=== PATIENT | male | born 1935 | race Caucasian/White ===

== ENCOUNTER 2016-11-19 08:35 | Inpatient (IN) | payer MEDICARE ==
[~2016-11-19] VITALS: Ht 177.8 cm; Wt 74.8 kg
[2016-11-19] VITALS (12 sets, daily range): BP systolic 154–177; BP diastolic 68–84; PULSE 73–90; RESP 17–22; TEMP 94.5–98.2; O2SAT 97–100
[~2016-11-19 08:35] MED LIST: CYAN100017 PO; DONE10TA7 PO; LATA0.002 EACH EYE; LISI-519 PO; LOVA40TA PO; METF1000 PO; NAME10TA PO; NOVOLOGMXP SQ
--- NOTE | 2016-11-19 08:52 | PD ---
HPI Chief Complaint: Diabetic Time Seen by Provider: 08:52 Travel History International Travel<30 days: No Contact w/Intl Traveler<30days: No Traveled to known affect area: No History of Present Illness HPI 81-year-old male was brought in from his home after being found unconscious. Patient has history of dementia. He is not a good historian. As per EMS his blood sugar was 24. Patient is diabetic. He was given 250 ML's of 10% dextrose. Repeat blood sugar by EMS was 135. By the time patient arrived here he continued to be confused and little bit stuporous. His repeat blood sugar was 84. I went to see him in his vital signs were stable. He woke up upon calling his name and followed my instructions of sitting on. He was confused and didn't know where he was and what was he doing in the emergency room. Patient is not a reliable historian at this point. However he doesn't appear to be in any significant distress. I do not know the condition of his underlying dementia. There is no family member or friends in the room to help with the history. [facility] Past Medical History Narrative Medical List of his past medical, surgical, social and family history is reviewed from the nursing note. Medical History: Unable to Obtain Arthritis: Yes Blood Disorders: No Heart Rhythm Problems: No Cancer: No Cardiovascular Problems: Yes High Cholesterol: No Chest Pain: No Congestive Heart Failure: No Cerebrovascular Accident: No Dementia: Yes Diabetes: Yes Patient Takes Glucophage: Yes Diminished Hearing: Yes ([place]) Endocrine: Yes Glaucoma: Yes Genitourinary: No Hypertension: Yes Medical other: Yes (OSTEOARTHRITIS, ELEVATED CHOLESTEROL) Musculoskeletal: Yes (orteoarthritis) Neurologic: Yes (DEMENTIA) Psychiatric: No Reproductive: No Respiratory: No Myocardial Infarction: No Thyroid Disease: No Tetanus Vaccination: Unknown Past Surgical History Surgical History: Unable to Obtain Abdominal Surgery: No Cardiac Surgery: No Eye Surgery: Yes (PHACO WITH IOL BILATERAL) Neurologic Surgery: No Oral Surgery: Yes Tonsillectomy: Yes Other Surgery: Yes Social History Alcohol Use: No Tobacco Use: No (QUIT) Substance Use: No Allergies-Medications (Allergen,Severity, Reaction): Coded Allergies: No Known Allergies (Verified , 11/19/16) Comments No known drug allergies. Reported Meds & Prescriptions Reported Meds & Active Scripts Active Lisinopril 5 Mg Tab 5 Mg PO DAILY Reported Tresiba Flextouch Pen Inj (Insulin Degludec Inj) 300 unit/3 ML Pen 30 Units SQ HS Tradjenta (Linagliptin) 5 Mg Tab 5 Mg PO DAILY Donepezil 10 Mg Tab 10 Mg PO DAILY Lovastatin 40 Mg Tab 40 Mg PO DAILY Metformin (Metformin HCl) 1,000 Mg Tab 1,000 Mg PO BID With meals Namenda (Memantine) 10 Mg Tab 10 Mg PO BID Latanoprost Opth Drops (Latanoprost) 0.005% Drops 1 Drop EACH EYE HS Refrigerate until opened. Narrative Medication List of his home medications reviewed from the nursing note. Review of Systems Except as stated in HPI: all other systems reviewed are Neg Physical Exam Narrative GENERAL: Awake, alert, elderly, confused, dementia, no obvious distress SKIN: Focused skin assessment warm/dry. HEAD: Atraumatic. Normocephalic. EYES: Pupils equal and round. No scleral icterus. No injection or drainage. ENT: No nasal bleeding or discharge. Dry mucous membrane NECK: Trachea midline. No JVD. CARDIOVASCULAR: Regular rate and rhythm. No murmur appreciated. RESPIRATORY: No accessory muscle use. Clear to auscultation. Breath sounds equal bilaterally. GASTROINTESTINAL: Abdomen soft, non-tender, nondistended. Hepatic and splenic margins not palpable. MUSCULOSKELETAL: No obvious deformities. No clubbing. No cyanosis. No edema. NEUROLOGICAL: Awake and alert. No obvious cranial nerve deficits. Motor grossly within normal limits. Normal speech. PSYCHIATRIC: Appropriate mood and affect; insight and judgment normal. Data Data Last Documented VS Vital Signs Date Time Temp Pulse Resp B/P Pulse Ox O2 Delivery O2 Flow Rate FiO2 11/19/16 12:00 97.2 11/19/16 12:00 76 17 154/74 97 Room Air Orders Complete Blood Count With Diff (11/19/16 09:06) Comprehensive Metabolic Panel (11/19/16 09:06) Urinalysis - C+S If Indicated (11/19/16 09:06) Iv Access Insert/Monitor (11/19/16 09:06) Ecg Monitoring (11/19/16 09:06) Oximetry (11/19/16 09:06) Sodium Chloride 0.9% Flush (Ns Flush) (11/19/16 09:15) Electrocardiogram (11/19/16 09:06) Blood Glucose (11/19/16 09:06) Ct Brain W/O Iv Contrast(Rout) (11/19/16 ) Blood Glucose (11/19/16 09:43) Chest, Single Ap (11/19/16 ) Potassium Chloride Eff (K-Lyte Cl Eff) (11/19/16 11:45) Dext 5%-Nacl 0.9% 500 Ml Inj (D5w-Ns 500 (11/19/16 12:45) Admit To Inpatient (11/19/16 ) Code Status (11/19/16 13:03) Vital Signs (Adult) Q4H (11/19/16 13:03) Activity Oob With Assistance (11/19/16 13:03) Candle Molder Machine / Telemetry .CONTINUOUS (11/19/16 13:03) Diet 1800 Ada Cons Carb (11/19/16 Lunch) Sodium Chloride 0.9% Flush (Ns Flush) (11/19/16 13:15) Sodium Chloride 0.9% Flush (Ns Flush) (11/19/16 21:00) Acetaminophen (Tylenol) (11/19/16 13:15) Ondansetron Inj (Zofran Inj) (11/19/16 13:15) Basic Metabolic Panel (Bmp) (11/20/16 06:00) Complete Blood Count With Diff (11/20/16 06:00) Electrocardiogram (11/19/16 13:03) Pt Request For Service (11/19/16 13:03) Scd Bilateral/Knee High JEREMIE.BID (11/19/16 13:03) Naloxone Inj (Narcan Inj) (11/19/16 13:15) Magnesium Hydroxide Liq (Milk Of Magnesi (11/19/16 13:15) Inpatient Certification (11/19/16 ) D5-Ns + Kcl 20 Meq Inj (D5-Ns + Kcl 20 M (11/19/16 13:15) Bedside Glucose . DIRECTED (11/19/16 13:09) Donepezil (Aricept) (11/20/16 09:00) Latanoprost 0.005% Opth Soln (Xalatan 0. (11/19/16 21:00) Pravastatin (Pravachol) (11/19/16 13:15) Memantine (Namenda) (11/19/16 21:00) Case Management Consult (11/19/16 ) Admit Order (Ed Use Only) (11/19/16 13:16) Labs Laboratory Tests Test 11/19/16 09:15 White Blood Count 12.3 TH/MM3 Red Blood Count 4.60 MIL/MM3 Hemoglobin 14.4 GM/DL Hematocrit 42.5 % Mean Corpuscular Volume 92.4 FL Mean Corpuscular Hemoglobin 31.2 PG Mean Corpuscular Hemoglobin 33.8 % Concent Red Cell Distribution Width 12.9 % Platelet Count 216 TH/MM3 Mean Platelet Volume 10.2 FL Neutrophils (%) (Auto) 84.2 % Lymphocytes (%) (Auto) 7.7 % Monocytes (%) (Auto) 7.7 % Eosinophils (%) (Auto) 0.1 % Basophils (%) (Auto) 0.3 % Neutrophils # (Auto) 10.3 TH/MM3 Lymphocytes # (Auto) 1.0 TH/MM3 Monocytes # (Auto) 0.9 TH/MM3 Eosinophils # (Auto) 0.0 TH/MM3 Basophils # (Auto) 0.0 TH/MM3 CBC Comment DIFF FINAL Differential Comment Urine Color LIGHT-YELLOW Urine Turbidity CLEAR Urine pH 7.0 Urine Specific [place] 1.010 Urine Protein 30 mg/dL Urine Glucose (UA) 150 mg/dL Urine Ketones NEG mg/dL Urine Occult Blood SMALL Urine Nitrite NEG Urine Bilirubin NEG Urine Urobilinogen LESS THAN 2.0 MG/DL Urine Leukocyte Esterase NEG Urine RBC 1 /hpf Urine WBC LESS THAN 1 /hpf Urine Mucus FEW /lpf Microscopic Urinalysis Comment CULT NOT INDICATED Sodium Level 139 MEQ/L Potassium Level 3.2 MEQ/L Chloride Level 102 MEQ/L Carbon Dioxide Level 22.7 MEQ/L Anion Gap 14 MEQ/L Blood Urea Nitrogen 15 MG/DL Creatinine 1.06 MG/DL Estimat Glomerular Filtration 67 ML/MIN Rate Random Glucose 85 MG/DL Calcium Level 8.7 MG/DL Total Bilirubin 0.4 MG/DL Aspartate Amino Transf 20 U/L (AST/SGOT) Alanine Aminotransferase 17 U/L (ALT/SGPT) Alkaline Phosphatase 70 U/L Total Protein 6.9 GM/DL Albumin 3.7 GM/DL MDM Medical Decision Making Medical Screen Exam Complete: Yes Emergency Medical Condition: Yes Medical Record Reviewed: Yes Interpretation(s) Twelve-lead EKG was reviewed by me. Normal sinus rhythm, normal axis, LVH, nonspecific ST-T wave changes. Heart rate of 74 bpm. Differential Diagnosis Hypoglycemia, sepsis, UTI, electrolyte abnormality Narrative Course 9:43 AM I gave patient a carton of fat free milk to drink as well as about 100 ML's of orange Gatorade. He drank the entire amount. Repeat blood sugar was 100. I asked the nurse to do a rectal temperature and it was 94.5. I've asked them to put a bear hugger. Awaiting for blood test result, UA and CT scan of his head. A repeat blood sugar 2 will be done every hourly. 11:14 AM the repeat blood sugar was 105 days. Patient has another blood sugar pending and 15 minutes. The temperature was 96.7. Patient continues to be under bear hugger. 12:45 PM repeat temperature was 97.5. However the blood sugar has dropped down to 65. Patient has been given a food tray but given the sugar of started him on D5 normal saline drip. Patient will need to be admitted at this point since he cannot sustain the blood sugar. Awaiting for the hospitalist to call back. Patient lives at home with a significant other. I'm really concerned about his caretaking. I've asked the nurse to call DCF so that they will visit can be done to look at the environmental and living circumstances Procedures EKG Prior to Arrival: No Diagnosis Primary Impression: Hypoglycemia Additional Impressions: Hypothermia Qualified Code: T68.XXXA - Hypothermia, initial encounter Dementia Qualified Code: F03.90 - Dementia without behavioral disturbance, unspecified dementia type Altered mental status Qualified Code: R40.1 - Stupor Admitting Information Admitting Physician Requests: Admit Scripts Lisinopril 5 Mg Tab5 Mg PO DAILY #60 TAB Ref 0 Prov:Jayden Lopes DO 11/19/16 Broderick Harrison MD Nov 19, 2016 08:52
[2016-11-19] MEDS ORDERED: SODIUM CHLORIDE 0.9% FLUSH 10 ML FLUSH IV FLUSH PRN ×2 (09:15→13:15)
[2016-11-19 09:40] LABS: AUTOMATED NEUTROPHIL # 10.3 TH/MM3 (1.8-7.7); BASOPHIL % 0.3 % (0.0-2.0); EOSINOPHIL % 0.1 % (0.0-4.0); HEMATOCRIT 42.5 % (39.0-51.0); HEMO FLAGS DIFF FINAL; LYMPH % 7.7 % (9.0-44.0); MEAN CELL VOLUME 92.4 FL (80.0-100.0); MEAN CORPUSCULAR HEMOGLOBIN 31.2 PG (27.0-34.0); MEAN CORPUSCULAR HGB CONC 33.8 % (32.0-36.0); MONO % 7.7 % (0.0-8.0); NEUT % 84.2 % (16.0-70.0); PLATELET COUNT 216 TH/MM3 (150-450); RED CELL DISTRIBUTION WIDTH 12.9 % (11.6-17.2); WHITE BLOOD COUNT 12.3 TH/MM3 (4.0-11.0)
[2016-11-19 09:48] LABS: BLOOD, URINE SMALL (NEG); COMMENT (UR) CULT NOT INDICATED; CULTURE IF INDICATED CULT NOT INDICATED; GLUCOSE,URINE 150 mg/dL (NEG); KETONE, URINE NEG (NEG); MUCUS URINE FEW /lpf (OCC); NITRITE,URINE NEG (NEG); URINE COLOR LIGHT-YELLOW (YELLW/STRAW)
[2016-11-19 09:59] LABS: ANION GAP 14 MEQ/L (5-15); AST (GOT) 20 U/L (15-37); BICARBONATE 22.7 MEQ/L (21.0-32.0); BLOOD UREA NITROGEN 15 MG/DL (7-18); CHLORIDE 102 MEQ/L (98-107); GLOMERULAR FILTRATION RATE 67 ML/MIN (>89); POTASSIUM 3.2 MEQ/L (3.5-5.1); SODIUM (NA) 139 MEQ/L (136-145)
[2016-11-19 10:01] LABS: ALT (GPT) 17 U/L (12-78)
[2016-11-19 10:03] LABS: ALKALINE PHOSPHATASE 70 U/L (45-117); TOTAL BILIRUBIN ADULT 0.4 MG/DL (0.2-1.0)
--- NOTE | 2016-11-19 10:11 | RADRPT ---
EXAM DATE/TIME: 11/19/2016 09:45 [facility] COMPARISON: CT BRAIN W/O CONTRAST, May 13, 2016, 11:08. INDICATIONS : Altered mental status today. RADIATION DOSE: 37.95 CTDIvol (mGy) MEDICAL HISTORY : Hypertension. Cardiovascular disease SURGICAL HISTORY : Tonsillectomy. ENCOUNTER: Initial ACUITY: 1 day PAIN SCALE: 0/10 LOCATION: Bilateral head TECHNIQUE: Multiple contiguous axial images were obtained of the head. Using automated exposure control and adj ustment of the mA and/or kV according to patient size, radiation dose was kept as low as reasonably a chievable to obtain optimal diagnostic quality images. FINDINGS: CEREBRUM: The ventricles are normal for age. No evidence of midline shift, mass lesion, hemorrhage or acute in farction. No extra-axial fluid collections are seen. POSTERIOR FOSSA: The cerebellum and brainstem are intact. The 4th ventricle is midline. The cerebellopontine angle i s unremarkable. EXTRACRANIAL: The visualized portion of the orbits is intact. SKULL: The calvaria is intact. No evidence of skull fracture. CONCLUSION: No acute disease. Jaret Crump MD FACR on November 19, 2016 at 10:08 Board Certified Radiologist. This report was verified electronically.
--- NOTE | 2016-11-19 10:20 | RADRPT ---
EXAM DATE/TIME: 11/19/2016 10:07 [facility] COMPARISON: CHEST SINGLE AP, May 13, 2016, 11:08. INDICATIONS : Altered mental status. MEDICAL HISTORY : Dementia. Hypertension. Diabetes mellitus type 2. SURGICAL HISTORY : Tonsillectomy. ENCOUNTER: Initial ACUITY: 1 day PAIN SCORE: Non-responsive. LOCATION: Bilateral chest FINDINGS: A single view of the chest demonstrates the lungs to be symmetrically aerated without evidence of mas s, infiltrate or effusion. The cardiomediastinal contours are unremarkable. Granuloma present in th e left lung base. Osseous structures are intact. CONCLUSION: No acute disease. Jaret Crump MD FACR on November 19, 2016 at 10:17 Board Certified Radiologist. This report was verified electronically.
[2016-11-19] MEDS ORDERED: POTASSIUM CHLORIDE 25 MEQ EFFERVESCENT TAB PO ONE (11:45)
[2016-11-19] MEDS ORDERED: DEXT 5%-NACL 0.9% 500 ML INJ 500 ML IV ONE (12:45)
[2016-11-19] MEDS ORDERED: LISI-519 PO (13:13)
[2016-11-19] MEDS ORDERED: MAGNESIUM HYDROXIDE SUSP 30 ML CUP PO PRN (13:15)
[2016-11-19] MEDS ORDERED: ONDANSETRON HCL 4 MG/2 ML VIAL IVP PRN (13:15)
[2016-11-19] MEDS ORDERED: NALOXONE HCL 0.4 MG/ML AMP IV PRN (13:15)
[2016-11-19] MEDS ORDERED: ACETAMINOPHEN 325 MG TAB PO PRN (13:15)
[2016-11-19] MEDS: PRAVASTATIN SOD 40 MG TAB PO SCH (13:32)
[2016-11-19] MEDS ORDERED: TRAD5TAB PO (14:45)
[2016-11-19] MEDS ORDERED: INSU1INJ14 SQ (14:45)
--- NOTE | 2016-11-19 17:30 | HHI.HP ---
HPI [facility] Hospitalists Primary Care Physician Carlos Alberto Angeles MD Admission Diagnosis hypoglycemia, hypothermia, dementia, altered mental status Chief Complaint: confusion hypoglycemia Travel History International Travel<30 Days: No Contact w/Intl Traveler <30 Da: No Traveled to Known Affected Are: No History of Present Illness Pt is a 81 y/o M with h/o alzheimer's dementia, HTN, and DM. Pt was found at unconscious at his home. EMS found his BS to be 24. Pt given 250ml of 10% dextrose with BS increasing to 135. Pt transported to the [place] ER. Pt continued to be confused and sleepy. Repeat BS 84. Pt's blood sugar continued to trend downward. Pt has history of DM. Pt follows with Endocrinology and is maintained on a number of different DM agents. Pt started on D5NS. Pt admitted to [place] for further evaluation and treatment. Pt is a poor historian. History obtained by reviewing pt's records in [facility] and discussion with the ER physician. Review of Systems ROS Limitations: Poor Historian Constitutional: DENIES: Diaphoretic episodes, Fatigue, Fever, Weight gain, Weight loss, Chills, Dizziness, Change in appetite, Night Sweats Endocrine: DENIES: Heat/cold intolerance, Polydipsia, Polyuria, Polyphagia Eyes: DENIES: Blurred vision, Diplopia, Eye inflammation, Eye pain, Vision loss , Photosensitivity, Double Vision Ears, nose, mouth, throat: DENIES: Tinnitus, Hearing loss, Vertigo, Nasal discharge, Oral lesions, Throat pain, Hoarseness, Ear Pain, Running Nose, Epistaxis, Sinus Pain, Toothache, Odynophagia Respiratory: DENIES: Apneas, Cough, Snoring, Wheezing, Hemoptysis, Sputum production, Shortness of breath Cardiovascular: DENIES: Chest pain, Palpitations, Syncope, Dyspnea on Exertion , PND, Lower Extremity Edema, Orthopnea, Claudication Gastrointestinal: DENIES: Abdominal pain, Black stools, Bloody stools, BRB per rectum, Constipation, Diarrhea, GERD, Nausea, Reflux, Vomiting, Difficulty Swallowing, Anorexia Genitourinary: DENIES: Urinary frequency, Urinary incontinence, Urgency, Hematuria, Dysuria, Nocturia Musculoskeletal: DENIES: Joint pain, Muscle aches, Stiffness, Joint Swelling, Back pain, Neck pain Integumentary: DENIES: Abnormal pigmentation, Nail changes, Pruritus, Rash Hematologic/lymphatic: DENIES: Bruising, Lymphadenopathy Immunologic/allergic: DENIES: Eczema, Urticaria Neurologic: DENIES: Abnormal gait, Headache, Localized weakness, Paresthesias, Seizures, Speech Problems, Tremor, Poor Balance Psychiatric: DENIES: Anxiety, Confusion, Mood changes, Depression, Hallucinations, Agitation, Suicidal Ideation, Homicidal Ideation, Delusions, History of Bipolar, History of Schizophrenia Past Family Social History Past Medical History 1) Alzheimer's Dementia 2) HTN 3) DM, pt follows with Dr. Saavedra 4) hyperlipidemia 5) B12 deficiency Past Surgical History b/l cataract surgery Reported Medications Reported Meds & Active Scripts Active Lisinopril 5 Mg Tab 5 Mg PO DAILY Reported Tresiba Flextouch Pen Inj (Insulin Degludec Inj) 300 unit/3 ML Pen 30 Units SQ HS Tradjenta (Linagliptin) 5 Mg Tab 5 Mg PO DAILY Donepezil 10 Mg Tab 10 Mg PO DAILY Lovastatin 40 Mg Tab 40 Mg PO DAILY Metformin (Metformin HCl) 1,000 Mg Tab 1,000 Mg PO BID With meals Namenda (Memantine) 10 Mg Tab 10 Mg PO BID Latanoprost Opth Drops (Latanoprost) 0.005% Drops 1 Drop EACH EYE HS Refrigerate until opened. Allergies: Coded Allergies: No Known Allergies (Verified , 11/19/16) Family History Noncontributory Social History - - care for by significant other - No tobacco - No alcohol - No illicit drugs Physical Exam Vital Signs Vital Signs Date Time Temp Pulse Resp B/P Pulse Ox O2 Delivery O2 Flow Rate FiO2 11/19/16 17:09 96.3 73 18 159/73 97 11/19/16 15:49 76 17 169/70 98 11/19/16 14:00 80 19 173/68 97 Room Air 11/19/16 12:00 97.2 11/19/16 12:00 76 17 154/74 97 Room Air 11/19/16 10:43 96.7 11/19/16 09:40 78 20 164/77 97 Room Air 11/19/16 09:31 94.5 11/19/16 09:28 100 Room Air 11/19/16 09:20 94.5 11/19/16 08:52 98 Room Air 11/19/16 08:39 97.6 75 19 177/76 98 Physical Exam GENERAL: This is a well-nourished, well-developed patient, in no apparent distress. SKIN: No rashes, ecchymoses or lesions. Cool and dry. HEAD: Atraumatic. Normocephalic. No temporal or scalp tenderness. EYES: Pupils equal round and reactive. Extraocular motions intact. No scleral icterus. No injection or drainage. ENT: Nose without bleeding, purulent drainage or septal hematoma. Throat without erythema, tonsillar hypertrophy or exudate. Uvula midline. Airway patent. NECK: Trachea midline. No JVD or lymphadenopathy. Supple, nontender, no meningeal signs. CARDIOVASCULAR: Regular rate and rhythm without murmurs, gallops, or rubs. RESPIRATORY: Clear to auscultation. Breath sounds equal bilaterally. No wheezes , rales, or rhonchi. GASTROINTESTINAL: Abdomen soft, non-tender, nondistended. No hepato-splenomegaly , or palpable masses. No guarding. MUSCULOSKELETAL: Extremities without clubbing, cyanosis, or edema. No joint tenderness, effusion, or edema noted. No calf tenderness. Negative Homans sign bilaterally. NEUROLOGICAL: A&Ox2, but confused at times. Cranial nerves II through XII intact. Motor and sensory grossly within normal limits. Five out of 5 muscle strength in all muscle groups. Normal speech. Laboratory Laboratory Tests Test 11/19/16 09:15 White Blood Count 12.3 Red Blood Count 4.60 Hemoglobin 14.4 Hematocrit 42.5 Mean Corpuscular Volume 92.4 Mean Corpuscular Hemoglobin 31.2 Mean Corpuscular Hemoglobin 33.8 Concent Red Cell Distribution Width 12.9 Platelet Count 216 Mean Platelet Volume 10.2 Neutrophils (%) (Auto) 84.2 Lymphocytes (%) (Auto) 7.7 Monocytes (%) (Auto) 7.7 Eosinophils (%) (Auto) 0.1 Basophils (%) (Auto) 0.3 Neutrophils # (Auto) 10.3 Lymphocytes # (Auto) 1.0 Monocytes # (Auto) 0.9 Eosinophils # (Auto) 0.0 Basophils # (Auto) 0.0 CBC Comment DIFF FINAL Differential Comment Urine Color LIGHT-YELLOW Urine Turbidity CLEAR Urine pH 7.0 Urine Specific [place] 1.010 Urine Protein 30 Urine Glucose (UA) 150 Urine Ketones NEG Urine Occult Blood SMALL Urine Nitrite NEG Urine Bilirubin NEG Urine Urobilinogen LESS THAN 2.0 Urine Leukocyte Esterase NEG Urine RBC 1 Urine WBC LESS THAN 1 Urine Mucus FEW Microscopic Urinalysis Comment CULT NOT INDICATED Sodium Level 139 Potassium Level 3.2 Chloride Level 102 Carbon Dioxide Level 22.7 Anion Gap 14 Blood Urea Nitrogen 15 Creatinine 1.06 Estimat Glomerular Filtration 67 Rate Random Glucose 85 Calcium Level 8.7 Total Bilirubin 0.4 Aspartate Amino Transf 20 (AST/SGOT) Alanine Aminotransferase 17 (ALT/SGPT) Alkaline Phosphatase 70 Total Protein 6.9 Albumin 3.7 Result Diagram: 11/19/1615 11/19/1615 Imaging Last Impressions Head CT 11/19/16 0000 Signed Impressions: Service Date/Time: Saturday, November 19, 2016 09:45 - CONCLUSION: No acute disease. Jaret Crump MD FACR Chest X-Ray 11/19/16 0000 Signed Impressions: Service Date/Time: Saturday, November 19, 2016 10:07 - CONCLUSION: No acute disease. Jaret Crump MD FACR Septic Shock Reassessment Heart: Regular rate and rhythm Lungs: Clear Skin: Warm Peripheral Pulses: Bounding Right Radial Bounding Left Radial Bounding Right Popliteal Bounding Left Popliteal Bounding Right Dorsalis Pedis Bounding Left Dorsalis Pedis Bounding Right Posterior Tibial Bounding Left Posterior Tibial Capillary Refill: Brisk Assessment and Plan Problem List: (1) Hypoglycemia associated with type 2 diabetes mellitus Status: Acute Plan: - hold tresiba, tradjenta, and metformin - D5NS until Blood sugars improve - Pt may require additional assistance in his home vs LTC - consider SNF upon discharge. (2) Dementia Status: Chronic Plan: - continue aricept and namenda (3) HTN (hypertension) Status: Acute Plan: - lisinopril 5mg BID (home dose) - increase lisinopril to 20mg BID - catapress, vasotec IV prn - observe BP readings Physician Certification 2 Midnight Certification Type: Admission for Inpatient Services Order for Inpatient Services The services are ordered in accordance with Medicare regulations or non- Medicare payer requirements, as applicable. In the case of services not specified as inpatient-only, they are appropriately provided as inpatient services in accordance with the 2-midnight benchmark. Estimated LOS (days): 3 3 days is the estimated time the patient will need to remain in the hospital, assuming treatment plan goals are met and no additional complications. Post-Hospital Plan: Not yet determined Problem Qualifiers (1) Dementia: Qualified Code: F03.90 - Dementia without behavioral disturbance, unspecified dementia type (2) HTN (hypertension): Qualified Code: I15.2 - Hypertension due to endocrine disorder Jayden Lopes DO Nov 19, 2016 17:29
[2016-11-19] MEDS: D5-NS + KCL 20 MEQ INJ 1,000 ML IV SCH (18:37)
[2016-11-19] MEDS: MEMANTINE HCL 10 MG TAB PO SCH (20:58)
[2016-11-19] MEDS: SODIUM CHLORIDE 0.9% FLUSH 10 ML FLUSH IV FLUSH SCH (20:59)
[2016-11-19] MEDS: LATANOPROST 0.005% OPHT SOLN 2.5 ML BTL EACH EYE SCH (21:17)
[2016-11-20] VITALS (7 sets, daily range): BP systolic 104–190; BP diastolic 54–92; PULSE 75–99; RESP 18–20; TEMP 95.6–98.1; O2SAT 98–100
[2016-11-20] MEDS ORDERED: cloNIDine HCL 0.2 MG TAB PO PRN (00:30)
[2016-11-20] MEDS ORDERED: ENALAPRILAT 1.25 MG/ML VIAL IV PRN (00:30)
[2016-11-20] MEDS: D5-NS + KCL 20 MEQ INJ 1,000 ML IV SCH ×2 (01:10→09:40)
[2016-11-20 07:44] LABS: AUTOMATED NEUTROPHIL # 8.2 TH/MM3 (1.8-7.7); BASOPHIL % 0.4 % (0.0-2.0); EOSINOPHIL # 0.1 TH/MM3 (0-0.4); EOSINOPHIL % 0.5 % (0.0-4.0); HEMATOCRIT 42.2 % (39.0-51.0); HEMO FLAGS DIFF FINAL; LYMPHOCYTE # 1.3 TH/MM3 (1.0-4.8); MEAN CELL VOLUME 93.5 FL (80.0-100.0); MEAN CORPUSCULAR HEMOGLOBIN 30.7 PG (27.0-34.0); MEAN CORPUSCULAR HGB CONC 32.8 % (32.0-36.0); MONO % 11.2 % (0.0-8.0); NEUT % 75.9 % (16.0-70.0); PLATELET COUNT 189 TH/MM3 (150-450); RED BLOOD COUNT 4.51 MIL/MM3 (4.50-5.90); WHITE BLOOD COUNT 10.7 TH/MM3 (4.0-11.0)
[2016-11-20 08:10] LABS: POTASSIUM 4.4 MEQ/L (3.5-5.1)
[2016-11-20] MEDS: DONEPEZIL HCL 5 MG TAB PO SCH (09:41)
[2016-11-20] MEDS: PRAVASTATIN SOD 40 MG TAB PO SCH (09:41)
[2016-11-20] MEDS: SODIUM CHLORIDE 0.9% FLUSH 10 ML FLUSH IV FLUSH SCH ×2 (09:41→21:41)
[2016-11-20] MEDS: MEMANTINE HCL 10 MG TAB PO SCH ×2 (09:42→21:41)
[2016-11-20] MEDS: LISINOPRIL 20 MG TAB PO SCH ×2 (09:42→21:41)
--- NOTE | 2016-11-20 09:44 | EKG ---
Date Performed: 11/19/2016 Time Performed: 13:23:19 PTAGE: 81 years EKG: Sinus rhythm WITH OCCASIONAL VENTRICULAR PREMATURE COMPLEXES BORDERLINE ECG PREVIOUS TRACING : 11/19/2016 09.21 DOCTOR: Wilton Diamond Interpretating Date/Time 11/20/2016 09:36:10
--- NOTE | 2016-11-20 09:48 | EKG ---
Date Performed: 11/19/2016 Time Performed: 09:21:30 PTAGE: 81 years EKG: Sinus rhythm WITH SINUS ARRHYTHMIA NORMAL ECG PREVIOUS TRACING : 05/14/2016 06.05 DOCTOR: Wilton Diamond Interpretating Date/Time 11/22/2016 07:32:31
[2016-11-20] MEDS ORDERED: NIFEdipine 30 MG SUSTAINED RELEASE TAB PO SCH (12:15)
[2016-11-20] MEDS: TAMSULOSIN HCL 0.4 MG CAP PO SCH (13:28)
[2016-11-20] MEDS ORDERED: INSULIN ASPART 1,000 UNITS/10 ML VIAL SQ ONE (15:45)
--- NOTE | 2016-11-20 15:54 | HHI.PR ---
Subjective Remarks No new complaints. Objective Vitals Vital Signs Date Time Temp Pulse Resp B/P Pulse Ox O2 Delivery O2 Flow Rate FiO2 11/20/16 12:00 97.9 75 18 159/72 98 11/20/16 08:37 95.6 76 18 190/92 100 11/20/16 04:20 98.1 99 20 146/78 100 11/20/16 00:17 97.8 92 20 142/78 98 11/19/16 23:05 76 11/19/16 20:14 98.2 90 22 158/84 98 11/19/16 17:09 96.3 73 18 159/73 97 11/19/16 11/19/16 11/20/16 15:00 23:00 07:00 Intake Total 240 ml 240 ml 240 ml Output Total 500 ml 450 ml 1200 ml Balance -260 ml -210 ml -960 ml Intake Oral 240 ml 240 ml 240 ml Output Urine Total 500 ml 450 ml 1200 ml # Voids 4 # Bowel Movements 1 0 3 Result Diagram: 11/20/16 0659 11/20/16 0659 Imaging Last Impressions Head CT 11/19/16 0000 Signed Impressions: Service Date/Time: Saturday, November 19, 2016 09:45 - CONCLUSION: No acute disease. Jaret Crump MD FACR Chest X-Ray 11/19/16 0000 Signed Impressions: Service Date/Time: Saturday, November 19, 2016 10:07 - CONCLUSION: No acute disease. Jaret Crump MD FACR Objective Remarks GENERAL: This is a well-nourished, well-developed patient, in no apparent distress. CARDIOVASCULAR: Regular rate and rhythm without murmurs, gallops, or rubs. RESPIRATORY: Clear to auscultation. Breath sounds equal bilaterally. No wheezes , rales, or rhonchi. GASTROINTESTINAL: Abdomen soft, non-tender, nondistended. Normal active bowel sounds MUSCULOSKELETAL: Extremities without clubbing, cyanosis, or edema. NEURO: Alert & Oriented x2, but confused at times A/P Problem List: (1) Hypoglycemia associated with type 2 diabetes mellitus Status: Acute Plan: - hold tresiba, tradjenta, and metformin - pt now trending hyperglycemic, last blood sugar over 300 - D5 stopped - novolog 20 units, once - medium dose novolog s/s - start levemir 10 units BID - consider resuming metformin 11/20/16 (2) Generalized weakness Status: Acute Plan: - PT - anticipate d/c to SNF in 1-2 days - Pt may ultimately require LTC (3) Dementia Status: Chronic Plan: - continue aricept and namenda (4) HTN (hypertension) Status: Acute Plan: - lisinopril 5mg BID (home dose) - increase lisinopril to 20mg BID - increase procardia XL to 60mg qAM - catapress, vasotec IV prn - observe BP readings (5) NSVT (nonsustained ventricular tachycardia) Status: Acute Plan: - one 6-beat run - continue to observe on telemetry (6) BPH (benign prostatic hyperplasia) Status: Chronic Plan: - pt with urinary retention - mathew placed, with drainage of 500ml clear urine - start flomax. Problem Qualifiers (1) Dementia: Qualified Code: F03.90 - Dementia without behavioral disturbance, unspecified dementia type (2) HTN (hypertension): Qualified Code: I15.2 - Hypertension due to endocrine disorder (3) BPH (benign prostatic hyperplasia): Jayden Lopes DO Nov 20, 2016 15:54
[2016-11-20] MEDS: INSULIN ASPART SUPPLEMENTAL SCALE SQ SCH ×2 (16:00→21:00)
[2016-11-20 17:19] LABS: BLOOD, URINE LARGE (NEG); COMMENT (UR) CULTURE INDICATED; CULTURE IF INDICATED CULTURE INDICATED; GLUCOSE,URINE 1000 mg/dL (NEG); KETONE, URINE 40 mg/dL (NEG); MUCUS URINE FEW /lpf (OCC); NITRITE,URINE NEG (NEG); SQUAMOUS EPITHELIAL CELL URINE <1 /hpf (0-5); URINE COLOR YELLOW (YELLW/STRAW)
[2016-11-20] MEDS ORDERED: INSULIN DETEMIR 100 UNITS/ML VIAL SQ SCH (21:00)
[2016-11-20] MEDS: LATANOPROST 0.005% OPHT SOLN 2.5 ML BTL EACH EYE SCH (21:41)
[2016-11-21 01:03] VITALS: BP 115/57; PULSE 81; RESP 20; TEMP 96.9; O2SAT 96
[2016-11-21] MEDS: INSULIN ASPART SUPPLEMENTAL SCALE SQ SCH ×4 (06:30→22:35)
[2016-11-21 08:27] VITALS: BP 103/56; PULSE 92; RESP 20; TEMP 95.9; O2SAT 97
[2016-11-21] MEDS: NIFEdipine 60 MG SUSTAINED RELEASE TAB PO SCH (09:04)
[2016-11-21] MEDS: TAMSULOSIN HCL 0.4 MG CAP PO SCH (09:05)
[2016-11-21] MEDS: MEMANTINE HCL 10 MG TAB PO SCH ×2 (09:05→21:36)
[2016-11-21] MEDS: SODIUM CHLORIDE 0.9% FLUSH 10 ML FLUSH IV FLUSH SCH ×2 (09:05→21:36)
[2016-11-21] MEDS: DONEPEZIL HCL 5 MG TAB PO SCH (09:05)
[2016-11-21] MEDS: PRAVASTATIN SOD 40 MG TAB PO SCH (09:05)
[2016-11-21] MEDS: LISINOPRIL 20 MG TAB PO SCH ×2 (09:06→21:36)
[2016-11-21 10:47] VITALS: PULSE 63
--- NOTE | 2016-11-21 11:29 | HHI.PR ---
Subjective Remarks nad hypoglycemia overnight. Objective Vitals heart reg lung cta abd s/nt ext no edema Vital Signs Date Time Temp Pulse Resp B/P Pulse Ox O2 Delivery O2 Flow Rate FiO2 11/21/16 10:47 63 11/21/16 08:27 95.9 92 20 103/56 97 11/21/16 01:03 96.9 81 20 115/57 96 11/20/16 23:00 91 11/20/16 20:11 97.2 93 20 104/54 99 11/20/16 16:23 96.3 85 18 150/66 99 11/20/16 12:00 97.9 75 18 159/72 98 11/20/16 11/20/16 11/21/16 15:00 23:00 07:00 Intake Total 360 ml 240 ml Output Total 1245 ml 100 ml 350 ml Balance -885 ml 140 ml -350 ml Intake Oral 360 ml 240 ml Output Urine Total 1245 ml 100 ml 350 ml # Voids 2 # Bowel Movements 1 0 Result Diagram: 11/20/16 0659 11/20/16 0659 Imaging Last Impressions Head CT 11/19/16 0000 Signed Impressions: Service Date/Time: Saturday, November 19, 2016 09:45 - CONCLUSION: No acute disease. Jaret Crump MD FACR Chest X-Ray 11/19/16 0000 Signed Impressions: Service Date/Time: Saturday, November 19, 2016 10:07 - CONCLUSION: No acute disease. Jaret Crump MD FACR A/P Problem List: (1) Hypoglycemia associated with type 2 diabetes mellitus Status: Acute Plan: - hold tresiba, tradjenta, and metformin - D5 stopped...attempted to resume basal insulin yesterday but was very hypoglycemic overnight. - will monitor bg today and use ssi as needed ..then decide on scheduled meds. (2) Generalized weakness Status: Acute Plan: - PT - anticipate d/c to SNF in 1-2 days - Pt may ultimately require LTC (3) Dementia Status: Chronic Plan: - continue aricept and namenda (4) HTN (hypertension) Status: Chronic Plan: - monitor bp on increased dosages ordered yesterday (5) NSVT (nonsustained ventricular tachycardia) Status: Acute Plan: - one 6-beat run - continue to observe on telemetry (6) BPH (benign prostatic hyperplasia) Status: Chronic Plan: - pt with urinary retention - mathew placed, with drainage of 500ml clear urine - start flomax. Problem Qualifiers (1) Dementia: Qualified Code: F03.90 - Dementia without behavioral disturbance, unspecified dementia type (2) HTN (hypertension): Qualified Code: I15.2 - Hypertension due to endocrine disorder (3) BPH (benign prostatic hyperplasia): Jose Burrows MD Nov 21, 2016 11:29
[2016-11-21 12:09] VITALS: BP 112/59; PULSE 75; RESP 20; TEMP 96.9; O2SAT 99
[2016-11-21 16:47] VITALS: BP 136/60; PULSE 75; RESP 20; TEMP 97.4; O2SAT 98
[2016-11-21 20:00] VITALS: BP 150/67; PULSE 86; RESP 18; TEMP 97.1; O2SAT 98
[2016-11-21] MEDS: LATANOPROST 0.005% OPHT SOLN 2.5 ML BTL EACH EYE SCH (21:36)
[2016-11-22] VITALS (9 sets, daily range): BP systolic 83–142; BP diastolic 54–64; PULSE 81–118; RESP 18–20; TEMP 96.4–98.2; O2SAT 94–98
[2016-11-22] MEDS: INSULIN ASPART SUPPLEMENTAL SCALE SQ SCH ×4 (06:11→21:35)
[2016-11-22] MEDS: INSULIN DETEMIR 100 UNITS/ML VIAL SQ SCH ×2 (08:26→21:36)
[2016-11-22] MEDS: PRAVASTATIN SOD 40 MG TAB PO SCH (08:28)
[2016-11-22] MEDS: DONEPEZIL HCL 5 MG TAB PO SCH (08:28)
[2016-11-22] MEDS: metFORMIN HCL 500 MG TAB PO SCH ×2 (08:29→17:15)
[2016-11-22] MEDS: MEMANTINE HCL 10 MG TAB PO SCH ×2 (08:29→21:38)
[2016-11-22] MEDS: TAMSULOSIN HCL 0.4 MG CAP PO SCH (08:29)
[2016-11-22] MEDS: SODIUM CHLORIDE 0.9% FLUSH 10 ML FLUSH IV FLUSH SCH ×2 (08:30→21:38)
[2016-11-22] MEDS: LISINOPRIL 20 MG TAB PO SCH ×2 (08:33→21:38)
[2016-11-22] MEDS: NIFEdipine 60 MG SUSTAINED RELEASE TAB PO SCH (08:33)
--- NOTE | 2016-11-22 09:49 | HHI.PR ---
Subjective Remarks pleasant. dementia Objective Vitals heart reg lung cta abd s/nt ext no edema Vital Signs Date Time Temp Pulse Resp B/P Pulse Ox O2 Delivery O2 Flow Rate FiO2 11/22/16 08:00 97.5 98 18 83/54 96 114/54 11/22/16 04:00 96.4 87 18 127/59 98 11/22/16 02:59 118 11/22/16 01:59 81 11/22/16 00:00 97.0 82 18 142/64 98 11/21/16 20:00 97.1 86 18 150/67 98 11/21/16 16:47 97.4 75 20 136/60 98 11/21/16 12:09 96.9 75 20 112/59 99 11/21/16 10:47 63 11/21/16 11/21/16 11/22/16 15:00 23:00 07:00 Intake Total 720 ml Output Total 900 ml 401 ml Balance -180 ml -401 ml Intake Oral 720 ml Output Urine Total 900 ml 400 ml Stool Total 1 ml # Bowel Movements 1 Result Diagram: 11/20/16 0659 11/20/16 0659 Imaging Last Impressions Head CT 11/19/16 0000 Signed Impressions: Service Date/Time: Saturday, November 19, 2016 09:45 - CONCLUSION: No acute disease. Jaret Crump MD FACR Chest X-Ray 11/19/16 0000 Signed Impressions: Service Date/Time: Saturday, November 19, 2016 10:07 - CONCLUSION: No acute disease. Jaret Crump MD FACR A/P Problem List: (1) Hypoglycemia associated with type 2 diabetes mellitus Status: Acute Plan: - hold tresiba, tradjenta, -resume levemir and metformin. we don't have tresiba or tradjenta on formulary. -monitor for hypoglycemia once stable then d/c to snf. (2) Generalized weakness Status: Acute Plan: - PT - anticipate d/c to SNF in 1-2 days - Pt may ultimately require LTC (3) HTN (hypertension) Status: Acute Plan: d/c procardia cont higher dose lisinipril observe (4) Dementia Status: Chronic Plan: - continue aricept and namenda (5) NSVT (nonsustained ventricular tachycardia) Status: Acute Plan: - one 6-beat run - continue to observe on telemetry (6) BPH (benign prostatic hyperplasia) Status: Chronic Plan: - pt with urinary retention - mathew placed, with drainage of 500ml clear urine - start flomax. Problem Qualifiers (1) HTN (hypertension): Qualified Code: I15.2 - Hypertension due to endocrine disorder (2) Dementia: Qualified Code: F03.90 - Dementia without behavioral disturbance, unspecified dementia type (3) BPH (benign prostatic hyperplasia): Jose Burrows MD Nov 22, 2016 09:49
[2016-11-22] MEDS: LATANOPROST 0.005% OPHT SOLN 2.5 ML BTL EACH EYE SCH (21:37)
[2016-11-22] MEDS ORDERED: LORazepam 2 MG/ML VIAL IV SCH (23:45)
[2016-11-23] VITALS (8 sets, daily range): BP systolic 132–168; BP diastolic 62–82; PULSE 75–93; RESP 18–20; TEMP 96–98.6; O2SAT 95–98
[2016-11-23] MEDS ORDERED: LORazepam 2 MG/ML VIAL IV ONE (00:15)
[2016-11-23] MEDS: INSULIN ASPART SUPPLEMENTAL SCALE SQ SCH ×4 (07:00→21:54)
--- NOTE | 2016-11-23 08:41 | HHI.PR ---
Subjective Remarks confused and restrained last night. Objective Vitals mildly sedated heart reg lung cta abd s/nt ext no edema [place] Vital Signs Date Time Temp Pulse Resp B/P Pulse Ox O2 Delivery O2 Flow Rate FiO2 11/23/16 08:22 98.5 77 18 157/68 98 11/23/16 08:15 88 11/23/16 07:35 80 11/23/16 04:00 96.0 86 18 137/63 95 11/23/16 00:00 96.8 93 20 132/62 95 11/22/16 20:00 98.2 83 18 121/58 94 11/22/16 16:00 98.1 86 20 113/55 96 11/22/16 12:00 98.2 88 18 132/55 95 11/22/16 11:13 81 11/22/16 11/22/16 11/23/16 15:00 23:00 07:00 Intake Total 360 ml Output Total 510 ml 300 ml Balance -510 ml 60 ml Intake Oral 360 ml Output Urine Total 510 ml 300 ml # Bowel Movements 1 Result Diagram: 11/20/16 0659 11/20/16 0659 Imaging Last Impressions Head CT 11/19/16 0000 Signed Impressions: Service Date/Time: Saturday, November 19, 2016 09:45 - CONCLUSION: No acute disease. Jaret Crump MD FACR Chest X-Ray 11/19/16 0000 Signed Impressions: Service Date/Time: Saturday, November 19, 2016 10:07 - CONCLUSION: No acute disease. Jaret Crump MD FACR A/P Problem List: (1) Hypoglycemia associated with type 2 diabetes mellitus Status: Acute Plan: - hold tresiba, tradjenta, -resume levemir and metformin. we don't have tresiba or tradjenta on formulary. -monitor for hypoglycemia once stable then d/c to snf. try to remove restraints. pt has dementia/agitation (2) Generalized weakness Status: Acute Plan: - PT - anticipate d/c to SNF in 1-2 days - Pt may ultimately require LTC (3) HTN (hypertension) Status: Acute Plan: off procardia cont higher dose lisinipril observe (4) Dementia Status: Chronic Plan: - continue aricept and namenda (5) NSVT (nonsustained ventricular tachycardia) Status: Acute Plan: - one 6-beat run - continue to observe on telemetry (6) BPH (benign prostatic hyperplasia) Status: Chronic Plan: - pt with urinary retention - mathew placed - started flomax. -f/u urology Problem Qualifiers (1) HTN (hypertension): Qualified Code: I15.2 - Hypertension due to endocrine disorder (2) Dementia: Qualified Code: F03.90 - Dementia without behavioral disturbance, unspecified dementia type (3) BPH (benign prostatic hyperplasia): Jose Burrows MD Nov 23, 2016 08:41
[2016-11-23] MEDS: metFORMIN HCL 500 MG TAB PO SCH ×2 (09:00→17:30)
[2016-11-23] MEDS ORDERED: INSULIN DETEMIR 100 UNITS/ML VIAL SQ SCH ×2 (09:00→21:00)
[2016-11-23] MEDS: TAMSULOSIN HCL 0.4 MG CAP PO SCH (09:00)
[2016-11-23] MEDS: PRAVASTATIN SOD 40 MG TAB PO SCH (09:00)
[2016-11-23] MEDS: MEMANTINE HCL 10 MG TAB PO SCH (09:00)
[2016-11-23] MEDS: DONEPEZIL HCL 5 MG TAB PO SCH (09:00)
[2016-11-23] MEDS: LISINOPRIL 20 MG TAB PO SCH (09:00)
[2016-11-23] MEDS: SODIUM CHLORIDE 0.9% FLUSH 10 ML FLUSH IV FLUSH SCH (09:21)
[2016-11-24] VITALS: BP 168/74; PULSE 80; RESP 22; TEMP 97.1; O2SAT 97
[2016-11-24 04:00] VITALS: BP 164/67; PULSE 75; RESP 18; TEMP 97.9; O2SAT 98
[2016-11-24] MEDS: LATANOPROST 0.005% OPHT SOLN 2.5 ML BTL EACH EYE SCH (04:54)
[2016-11-24] MEDS: MEMANTINE HCL 10 MG TAB PO SCH ×2 (04:55→11:06)
[2016-11-24] MEDS: LISINOPRIL 20 MG TAB PO SCH ×2 (04:55→11:06)
[2016-11-24] MEDS: SODIUM CHLORIDE 0.9% FLUSH 10 ML FLUSH IV FLUSH SCH ×2 (04:55→11:06)
[2016-11-24] MEDS: INSULIN ASPART SUPPLEMENTAL SCALE SQ SCH (06:36)
[2016-11-24 07:03] VITALS: PULSE 72
[2016-11-24 08:17] VITALS: BP 136/60; PULSE 72; RESP 20; TEMP 98.4; O2SAT 98
[2016-11-24] MEDS ORDERED: INSULIN DETEMIR 100 UNITS/ML VIAL SQ SCH (09:00)
--- NOTE | 2016-11-24 09:06 | HHI.PR ---
Subjective Remarks less agitated. cooperative. demented Objective Vitals heart reg lung cta abd s/nt ext no edema Vital Signs Date Time Temp Pulse Resp B/P Pulse Ox O2 Delivery O2 Flow Rate FiO2 11/24/16 08:17 98.4 72 20 136/60 98 11/24/16 07:03 72 11/24/16 04:00 97.9 75 18 164/67 98 11/24/16 00:00 97.1 80 22 168/74 97 11/23/16 20:00 98.3 90 20 168/74 96 11/23/16 16:00 96.3 75 18 152/71 98 11/23/16 12:04 98.6 90 18 143/82 97 11/23/16 11/23/16 11/24/16 15:00 23:00 07:00 Intake Total 210 ml Output Total 1550 ml 450 ml 350 ml Balance -1340 ml -450 ml -350 ml Intake Oral 210 ml Output Urine Total 1550 ml 450 ml 350 ml Result Diagram: 11/20/16 0659 11/20/16 0659 Imaging Last Impressions Head CT 11/19/16 0000 Signed Impressions: Service Date/Time: Saturday, November 19, 2016 09:45 - CONCLUSION: No acute disease. Jaret Crump MD FACR Chest X-Ray 11/19/16 0000 Signed Impressions: Service Date/Time: Saturday, November 19, 2016 10:07 - CONCLUSION: No acute disease. Jaret Crump MD FACR A/P Problem List: (1) Hypoglycemia associated with type 2 diabetes mellitus Status: Acute Plan: - hold tresiba, tradjenta, -resumed levemir and metformin. we don't have tresiba or tradjenta on formulary. -monitor for hypoglycemia d/c to snf on levemir and ssi. (2) Generalized weakness Status: Acute Plan: - PT - d/c today (3) HTN (hypertension) Status: Acute Plan: off procardia cont higher dose lisinipril observe (4) Dementia Status: Chronic Plan: - continue aricept and namenda (5) NSVT (nonsustained ventricular tachycardia) Status: Acute Plan: - one 6-beat run - continue to observe on telemetry (6) BPH (benign prostatic hyperplasia) Status: Chronic Plan: - pt with urinary retention - mathew placed - started flomax. -f/u urology Problem Qualifiers (1) HTN (hypertension): Qualified Code: I15.2 - Hypertension due to endocrine disorder (2) Dementia: Qualified Code: F03.90 - Dementia without behavioral disturbance, unspecified dementia type (3) BPH (benign prostatic hyperplasia): Jose Burrows MD Nov 24, 2016 09:06
[2016-11-24] MEDS ORDERED: TAMS5CAP PO (09:08)
[2016-11-24] MEDS ORDERED: LEVEMIR SQ ×2 (09:08)
[2016-11-24] MEDS ORDERED: LISI-515 PO (09:16)
--- NOTE | 2016-11-24 09:17 | HHI.DCPOC ---
Discharge Care Plan Diagnosis: (1) Hypoglycemia (2) Altered mental status (3) Dementia (4) DM (diabetes mellitus) (5) HTN (hypertension) (6) Generalized weakness (7) BPH (benign prostatic hyperplasia) (8) Urine retention Goals to Promote Your Health * To prevent worsening of your condition and complications * To maintain your health at the optimal level Directions to Meet Your Goals Take your medications as prescribed Follow your dietary instruction Follow activity as directed Keep your appointments as scheduled Take your immunizations and boosters as scheduled If your symptoms worsen call your PCP, if no PCP go to Urgent Care Center or Emergency Room Smoking is Dangerous to Your Health. Avoid second hand smoke Call the 24-hour hour crisis hotline for domestic abuse at Jose Burrows MD Nov 24, 2016 09:17
[2016-11-24] MEDS: PRAVASTATIN SOD 40 MG TAB PO SCH (11:05)
[2016-11-24] MEDS: DONEPEZIL HCL 5 MG TAB PO SCH (11:06)
[2016-11-24] MEDS: TAMSULOSIN HCL 0.4 MG CAP PO SCH (11:06)
[2016-11-24] MEDS: metFORMIN HCL 500 MG TAB PO SCH (11:06)
--- NOTE | 2016-12-07 14:39 | HHI.DS ---
Discharge Summary Admission Date Nov 19, 2016 at 13:18 Discharge Date: Nov 24, 2016 Admitting Diagnosis hypoglycemia, hypothermia, dementia, altered mental status (1) Hypoglycemia associated with type 2 diabetes mellitus Diagnosis: Principal (2) Generalized weakness Diagnosis: Secondary (3) HTN (hypertension) Diagnosis: Secondary (4) Dementia Diagnosis: Secondary (5) NSVT (nonsustained ventricular tachycardia) Diagnosis: Secondary (6) BPH (benign prostatic hyperplasia) Diagnosis: Secondary Brief History Pt is a 81 y/o M with h/o alzheimer's dementia, HTN, and DM. Pt was found at unconscious at his home. EMS found his BS to be 24. Pt given 250ml of 10% dextrose with BS increasing to 135. Pt transported to the [facility] ER. Pt continued to be confused and sleepy. Repeat BS 84. Pt's blood sugar continued to trend downward. Pt has history of DM. Pt follows with Endocrinology and is maintained on a number of different DM agents. Pt started on D5NS. Pt admitted to [facility] for further evaluation and treatment. Pt is a poor historian. History obtained by reviewing pt's records in [facility] and discussion with the ER physician. Imaging Last Impressions Head CT 11/19/16 0000 Signed Impressions: Service Date/Time: Saturday, November 19, 2016 09:45 - CONCLUSION: No acute disease. Jaret Crump MD FACR Chest X-Ray 11/19/16 0000 Signed Impressions: Service Date/Time: Saturday, November 19, 2016 10:07 - CONCLUSION: No acute disease. Jaret Crump MD FACR Hospital Course Pt is an 81 y/o male with Alzheimer dementia, DM and HTN who was brought to the ED after being found unconscious with a blood glucose of 24. Pt was given 250ml of 10% dextrose with BS increasing to 135 en route to the hospital. Pt was given D5NS upon admission. His home meds, including Tresiba, Tradjenta, and metformin were held at admission. As his blood sugars began to increase he was started back on Metformin and then Levemir as the hospital does not have Tresiba or Tradjenta on formulary. During the admission the pts blood pressure was also an issue. His home dose of Lisinopril was increased to 20mg BID during admission. Procardia was added on 11/21 but he then became hypotensive so this was stopped on 11/22. On 11/21/11 he had one 6-beat run of NSVT noted on telemetry. During this admission he also had issues with urinary retention. He had Sharp cath placed and was started on Flomax. Pt will need to followup with Urology as an outpt. Pt was discharged to SNF in stable condition. He will be continued on Levemir 15 units during the day and 5 units HS and NovoLog SSI while at rehab. Pts Lisinopril will be continued at 20mg po BID. He will need to followup with Urology as an outpt Pt will need to followup with his PCP, 1 week after discharge from SNF. Pt Condition on Discharge: Stable Discharge Disposition: Discharge to SNF Discharge Instructions DIET: Follow Instructions for: Diabetic Diet Activities you can perform: Regular-No Restrictions Follow up Referrals: PCP Follow-up - [address] strickland New Medications: Insulin Detemir Inj (Levemir Inj) 1,000 unit/ 10 ML Vial 5 UNITS SQ HS diabetes Days 30 INJECTION Insulin Detemir Inj (Levemir Inj) 1,000 unit/ 10 ML Vial 15 UNITS SQ DAILY diabetes Days 30 INJECTION Lisinopril (Lisinopril) 20 Mg Tab 20 MG PO Q12HR htn #60 TAB Tamsulosin (Flomax) 0.4 Mg Cap 0.4 MG PO DAILY bph Days 30 CAP Continued Medications: Donepezil (Donepezil) 10 Mg Tab 10 MG PO DAILY Dementia #30 Ref 0 TAB Latanoprost Opth Drops (Latanoprost Opth Drops) 0.005% Drops 1 DROP EACH EYE HS Refrigerate until opened. Glaucoma #2.5 Ref 0 ML Lovastatin (Lovastatin) 40 Mg Tab 40 MG PO DAILY Cholesterol Management #30 Ref 0 TAB Memantine (Namenda) 10 Mg Tab 10 MG PO BID Alzheimer Disease #30 Ref 0 TAB Metformin (Metformin) 1,000 Mg Tab 1000 MG PO BID With meals Blood Sugar Management #60 Ref 0 TAB Discontinued Medications: Insulin Degludec Inj (Tresiba Flextouch Pen Inj) 300 unit/3 ML Pen 30 UNITS SQ HS Blood Sugar Management #15 Ref 0 ML Linagliptin (Tradjenta) 5 Mg Tab 5 MG PO DAILY Blood Sugar Management #30 Ref 0 TAB Lisinopril (Lisinopril) 5 Mg Tab 5 MG PO DAILY Blood Pressure Management #60 Ref 0 TAB Tom,Rona E PA Dec 07, 2016 14:39
== END 2016-11-24 11:28 | DRG 638 ==
LOC: NEPE 08:35 → NEDA 13:18 → N05A 15:54
PROVIDERS: ADMIT Hospitalist; ATTEND Hospitalist
DX: E11.649 Type 2 diabetes mellitus with hypoglycemia without coma (principal); I47.2 Ventricular tachycardia; T68.XXXA Hypothermia, initial encounter; G30.9 Alzheimer's disease, unspecified; F02.80 Dementia in other diseases classified elsewhere, unspecified severity, without behavioral disturbance, psychotic disturbance, mood disturbance, and anxiety; E11.65 Type 2 diabetes mellitus with hyperglycemia; I10 Essential (primary) hypertension; E78.5 Hyperlipidemia, unspecified; M19.90 Unspecified osteoarthritis, unspecified site; N40.1 Benign prostatic hyperplasia with lower urinary tract symptoms; R33.8 Other retention of urine; H40.9 Unspecified glaucoma; H91.90 Unspecified hearing loss, unspecified ear; Z79.4 Long term (current) use of insulin; Z79.899 Other long term (current) drug therapy
CPT/HCPCS: 70450; 71010; 80048; 80053; 81001; 82948; 84153; 85025; 87086; 93005; J1815; J2060; J3480; J7042